=== PATIENT | female | born 1990 | race Caucasian/White ===

== ENCOUNTER 2022-01-02 14:14 | Outpatient (CLI) | payer BC, SELFPAY ==
--- NOTE | ~2022-01-02 | US_ITS ---
EXAMINATION: US OB <=14 wk fetus w TV DATE: 01/02/2022 14:48 INDICATION: Uncertain dates. TECHNIQUE: Real-time transabdominal and transvaginal pelvic ultrasound was performed. COMPARISON: None. FINDINGS: TRANSABDOMINAL ULTRASOUND: The uterus measures 13.2 x 6.8 x 6.9 cm. TRANSVAGINAL ULTRASOUND: There is an intrauterine gestational sac. A yolk sac is identified. The fet al crown rump length measures 3.0 cm, which correlates with an estimated gestational age of 9 weeks a nd 6 day(s) (+/-) 6 day(s). heart motion is identified measuring 173 beats per minute (bpm) by M-mode Doppler. The ovaries are not visualized. There is no free fluid in the pelvis. IMPRESSION: 1. Single living intrauterine gestation with estimated date of delivery of 08/01/2022. Reviewed, dictated and finalized at location A. IMPRESSION: 1. Single living intrauterine gestation with estimated date of delivery of .
== END 2022-01-02 14:15 ==
PROVIDERS: Visit Provider Obstetrics & Gynecology
DX: Z36.87 Encounter for antenatal screening for uncertain dates (principal); Z3A.09 9 weeks gestation of pregnancy
CPT/HCPCS: 76801; 76817

== ENCOUNTER 2022-07-18 20:14 | Inpatient (IN) | payer BC, SELFPAY ==
[2022-07-18] VITALS (26 sets, daily range): BP systolic 120–170; BP diastolic 63–126; PULSE 49–123; RESP 18; TEMP 36.1–36.9; O2SAT 89–100; BMI 24.1
[2022-07-18 21:14] LABS: Basophils Percent Auto 0.4 % (0.2-1.2); Eosinophils Absolute Auto 0.2 K/mm3 (0-0.3); Eosinophils Percent Auto 1.7 % (0-4.4); Hematocrit 37.8 % (37.0-47.0); Hemoglobin 12.5 g/dL (12.0-15.0); Immature Granulocyte Absolute 0.05 K/mm3 (0.00-0.031); Immature Granulocyte Percent A 0.6 % (0-0.5); Immature Platelet Fraction Pct 16.1 % (0.9-11.2); Lymphocytes Percent Auto 15.5 % (18.3-44.2); Mean Corpuscular HGB Conc 33.1 g/dl (32-36); Mean Corpuscular Hemoglobin 30.9 pg (26-34); Mean Corpuscular Volume 93.6 fl (80-100); Mean Platelet Volume 13.1 fl (7.4-10.4); Monocytes Absolute Auto 0.7 K/mm3 (0.1-0.6); Monocytes Percent Auto 7.8 % (2.6-8.5); Neutrophils Absolute Auto 6.7 K/mm3 (1.3-6.7); Platelet Count Result 173 k/mm3 (150-375); Red Blood Count 4.04 M/mm3 (4.2-5.4); Red Cell Distribution Width 13.2 % (11.5-14.5); White Blood Count 9.1 K/mm3 (4.5-10.0)
--- NOTE | 2022-07-18 21:27 | LDADM ---
This patient, Arabella Ga, was admitted to Labor/Delivery/Recovery 106 on 07/18/22 at 20:14. Plans for labor, pain management and were discussed with patient. Patient/family oriented to hospital policies and general routines including ID bracelet, bed and alarms, visiting hours, pain management, procedures, bathroom and other care routines, personal items, smoking policy, room service/diet and guest tray routines, security routines, and visiting hours. Patient/Family are encouraged to report perceived risks to care and to ask questions if they do not understand what they are told or what they should do. See OBIX for further documentation.
[2022-07-18] MEDS: LACTATED RINGERS 1,000 ML 125 ML IV CONT ×2 (22:02→23:38)
--- NOTE | 2022-07-18 22:32 | WPDANESEPP ---
Anes - Eval Pre Procedure Procedure: Labor epidural Date/Time: 07/18/22 22:32 Surgeon: Fercho Preop Diagnosis: Abd pain with contractions Pre Op Diagnosis: SROM Patient Data Age: 32 Gender: F Height: 1.7 m Weight: 70 kg Last Vital Signs Pulse 60 07/18/22 21:01 BP 135/85 07/18/22 21:01 Pulse Ox 100 07/18/22 22:31 O2 Del Method Room Air 07/18/22 21:26 Allergies Allergy/AdvReac Type Severity Reaction Status Date / Time amoxicillin Allergy Intermediate HIVES Verified 07/15/22 09:36 cephalexin Allergy Intermediate HIVES Verified 07/15/22 09:36 Penicillins Allergy Intermediate HIVES Verified 07/15/22 09:36 bacitracin Allergy Mild BLISTERS Verified 07/15/22 09:36 latex Allergy Mild Rash Verified 07/15/22 09:36 neomycin Allergy Mild BLISTERS Verified 07/15/22 09:36 polymyxin B Allergy Mild BLISTERS Verified 07/15/22 09:36 Home Medications Medication Instructions Recorded Confirmed Type vitamins-iron fumarate 65 1 tablet PO DAILY 12/26/21 07/15/22 History mg iron-folic acid 1 mg tablet Laboratory Tests 07/18/22 07/18/22 07/18/22 21:05 21:05 21:05 WBC 9.1 K/mm3 K/mm3 (4.5-10.0) RBC 4.04 M/mm3 L M/mm3 (4.2-5.4) Hgb 12.5 g/dL g/dL (12.0-15.0) Hct 37.8 % % (37.0-47.0) MCV 93.6 fl fl (80-100) MCH 30.9 pg pg (26-34) MCHC 33.1 g/dl g/dl (32-36) RDW 13.2 % % (11.5-14.5) Plt Count 173 k/mm3 k/mm3 (150-375) MPV 13.1 fl H fl (7.4-10.4) Immature Gran % (Auto) 0.6 % H % (0-0.5) Neut % (Auto) 74.0 % H % (45.5-73.1) Lymph % (Auto) 15.5 % L % (18.3-44.2) [place] % (Auto) 7.8 % % (2.6-8.5) Eos % (Auto) 1.7 % % (0-4.4) Baso % (Auto) 0.4 % % (0.2-1.2) Lymph # (Auto) 1.40 K/mm3 K/mm3 (0.9-3.2) [place] # (Auto) 0.7 K/mm3 H K/mm3 (0.1-0.6) Eos # (Auto) 0.2 K/mm3 K/mm3 (0-0.3) Baso # (Auto) 0.0 K/mm3 K/mm3 (0.0-0.1) Abs Immat Gran (auto) 0.05 K/mm3 H K/mm3 (0.00-0.031) Absolute Neuts (auto) 6.7 K/mm3 K/mm3 (1.3-6.7) Absolute Nucleated RBC 0.0 K/mm3 K/mm3 (0.0-0.012) Nucleated RBC % 0.0 % % (0.0-0.2) % Immature Plt Fraction 16.1 % H % (0.9-11.2) RPR Pending Blood Type A Positive Antibody Screen Negative Patient hx anesthesia problems: none Family hx anesthesia problems: none Results Review: All pre-operative results and documents have been reviewed as part of the pre-operative evaluation. [facility] Past Medical History Medical History Anxiety Crohn disease Cystic acne and not yet delivered Suppression of menstruation Surgical History Surgical History H/O colonoscopy (07/18/19) inflammation Social History Social History Smoking status: Former smoker Second hand tobacco smoke exposure: No Alcohol intake: never Substance use: former Substance use type: marijuana Other substance usage details: Past hx marijuana Last use: 11/05/2021 Additional living arrangements comments: spouse Additional occupation/education comments: stay at home mom Gender identity (if verbalized by the patient): Female Sexual Orientation (if Verbalized by the Patient): Straight or Heterosexual Spiritual care concerns: No Exam Day of Procedure 07/18/22 22:32 Patient weight: normal Airway: Mallampati scale class II
[2022-07-18] MEDS: OXYTOCIN 30 UNITS/NS 500 ML 30 UNITS/500 ML BAG 999 UNITS IV CONT (23:38)
--- NOTE | 2022-07-18 23:43 | WPDOBADMIT ---
Obstetrics - Admit Note Admission Note: record reviewed. No pertinent additions to the history and/or any subsequent changes in the physical findings that are not consistent with the expected course of the were found. Additions to the history and/or subsequent changes in the physical findings follow. None. @ 37.6wks admitted with SROM, spontaneous labor. Uncomplicated ; routine care.
--- NOTE | 2022-07-18 23:44 | WPDHPUPDATE1 ---
History and Physical Update Update Date/Time: 07/18/22 23:44 History and Physical has been reviewed, including an updated exam of the patient. There are NO changes in the patient's condition. Risks, benefits, and alternatives have been discussed and questions answered. Patient agrees to proceed with procedure.
--- NOTE | 2022-07-18 23:45 | PM.OBPRVD ---
OB - Delivery Note Procedure Delivery date: 07/18/22 Delivery monitor: External FHT and External Uterine Route of delivery: Laceration Description: Perineal - 1st Degree Delivery repair: vicryl Specimen: No Quantitative Blood Loss (ml): 150 Anesthesia type: Epidural Disposition: Floor [place] Baby Date of : 07/18/22 Time of : 23:31 Weeks of gestation at delivery: 37 (.6) Infant gender: Female Weight (pounds): 5 Weight (ounces): 13 presentation: vertex position: Right Occiput Anterior Placenta delivery description: Expressed Cord Vessel Description: 3 Vessels and Delayed Cord Clamping score one minute: 9 score five minutes: 9 Narrative: Arabella rapidly progressed to complete dilation with strong desire to push. She delivered the head over intact perineum. She easily delivered the 's shoulders and body without complication. The was immediately placed skin to skin and had spontaneous cry. Delayed cord clamping was performed. The umbilical cord was then clamped and cut. A segment of the cord was collected for cord gases. The remaining cord blood was collected for typing. With Pitocin running and gentle downward traction on the cord, the placenta delivered without complications. The patient was examined and a small first-degree perineal laceration was noted. The laceration was repaired using a 2-0 Vicryl in a figure of 8 pattern and the laceration was found be hemostatic. Sponge, lap, instrument, and needle counts were correct at the end the procedure. Mom and baby were left bonding in the birthing suite in stable condition. [facility] Delivery Billing Delivery Delivery: Delivery Charge
[2022-07-19] VITALS (15 sets, daily range): BP systolic 100–135; BP diastolic 49–84; PULSE 51–85; RESP 14–18; TEMP 36.6–36.9; O2SAT 96–99
[2022-07-19] MEDS: IBUPROFEN 600 MG TABLET PO ×3 (00:48→19:02)
[2022-07-19] MEDS: WITCH HAZEL 40 PADS 1 PAD TOPICAL (00:49)
[2022-07-19] MEDS: BENZOCAINE 20% AER SPR (*SP) 56 GM CAN 1 SPRAY TOPICAL (00:49)
--- NOTE | 2022-07-19 01:53 | PC.NURSE ---
Report given to Nahomi Farias
[2022-07-19 06:26] LABS: Hematocrit 31.2 % (37.0-47.0); Hemoglobin 10.4 g/dL (12.0-15.0)
--- NOTE | 2022-07-19 07:00 | PC.NURSE ---
PT introductions made and plan of care discussed per post , pain management, breast feeding, daily care activities. PT and spouse both recipients of such instructions and no barriers to learning identified at this time. PT received such instructions per one to one discussion, mom baby care guide and demonstrations this shift. PT verbalized understanding of such care.
--- NOTE | 2022-07-19 09:08 | P.PNOB_ITS ---
OB - PN: Subj Subjective Date/time seen: 07/19/22 09:08 Narrative: PPD#1 Arabella reports doing well today. 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 Her pain is controlled. She is tolerating regular diet, voiding, passing gas, and ambulating without issues. She is breast feeding. She would like to go home tomorrow AM. OB - PN: Obj Data Labs CBC & Chem 7: 07/19/22 05:27 Labs: Laboratory Results - last 24 hr 07/18/22 07/18/22 07/19/22 21:05 21:05 05:27 WBC 9.1 RBC 4.04 L Hgb 12.5 10.4 L Hct 37.8 31.2 L MCV 93.6 MCH 30.9 MCHC 33.1 RDW 13.2 Plt Count 173 MPV 13.1 H Immature Gran % (Auto) 0.6 H Neut % (Auto) 74.0 H Lymph % (Auto) 15.5 L [place] % (Auto) 7.8 Eos % (Auto) 1.7 Baso % (Auto) 0.4 Lymph # (Auto) 1.40 [place] # (Auto) 0.7 H Eos # (Auto) 0.2 Baso # (Auto) 0.0 Abs Immat Gran (auto) 0.05 H Absolute Neuts (auto) 6.7 Absolute Nucleated RBC 0.0 Nucleated RBC % 0.0 % Immature Plt Fraction 16.1 H Blood Type A Positive Antibody Screen Negative OB - PN A/P Assessment and Plan (1) Normal vaginal delivery of second : Code(s): O80 - Encounter for full-term uncomplicated delivery Status: Acute Plan day: 1 Plan: routine care and discharge home (tomorrow AM) Comments: - Pelvic rest; take meds as prescribed - ER return precautions: fever, n/v/abd pain, bleeding, HTN Time Spent With Patient Time: Total time spent is greater than 50% in coordination of care (as documented) at patient's floor/unit and/or counseling patient: Review of Systems Constitutional: Constitutional: Denies chills, Denies fever(s) and Denies headache(s) Eyes: Eyes: Denies change in vision ENT: Denies dizziness and Denies headache(s) Cardiovascular: Cardiovascular: Denies chest pain, Denies palpitations and Denies dyspnea Respiratory: Respiratory: Denies cough and Denies dyspnea Gastrointestinal: Gastrointestinal: Denies nausea and Denies vomiting Neurologic: Denies dizziness and Denies headache(s) Endocrine: Endocrine: Denies palpitations Exam Const: General: cooperative, healthy appearing, comfortable and no acute distress Orientation/consciousness: patient oriented x3 Resp: Effort & Inspection: normal respiratory effort Auscultation: clear to auscultation bilaterally Cardio: Rate: regular rate GI: Inspection: non-distended GI Palp: No abdominal tenderness and Yes Soft to palpation Auscultation: normal bowel sounds : Other: fundus firm Skin: General skin exam: normal color Neuro: General: patient oriented x3 Extrem: General: normal to inspection Psych: Appearance: grossly normal Affect: normal affect Attitude: cooperative
[2022-07-19] MEDS: ACETAMINOPHEN 325 MG TABLET 650 MG PO ×2 (11:16→19:02)
[2022-07-19] MEDS: MULTIVIT/MIN/PREN/FOL AC/IRON TABLET 1 TAB PO (11:18)
--- NOTE | 2022-07-19 13:02 | WPDANLDPN2 ---
Anes-Prog Note L&D Date/Time: 07/19/22 13:02 Comfortable throughout: labor and delivery Neuraxial method: epidural Epidural/Spinal procedure site: clean & non-tender Neuro status: Neuro function grossly intact. Cardiovascular status: normal Respiratory status: normal Airway patency: baseline Mental status: baseline Post-Op hydration status: normal Vital Signs: Last Vital Signs Temp 36.8 C 07/19/22 11:47 Pulse 60 07/19/22 11:47 Resp 14 07/19/22 11:47 BP 111/68 07/19/22 11:47 Pulse Ox 97 07/19/22 11:47 O2 Del Method Room Air 07/19/22 02:15 Pain score (VAS): 10/14 I/O: Intake & Output 07/18/22 07/19/22 07/19/22 23:59 07:59 15:59 Intake Total 1000 Output Total 240 Balance 1000 -240 Post-procedural complaints: none Patient feedback: Patient satisfied with anesthetic care.
--- NOTE | 2022-07-20 07:15 | PC.NURSE ---
PT introductions made and plan of care discussed per post , pain management, breast feeding, daily care activities and pending discharge to home. PT and spouse both recipients of such instructions and no barriers to learning identified at this time. PT received such instructions per one to one discussion, mom baby care guide and demonstrations this shift. PT verbalized understanding of such care.
[2022-07-20 09:00] VITALS: BP 113/70; PULSE 84; RESP 16; TEMP 36.6
[2022-07-20] MEDS: ACETAMINOPHEN 325 MG TABLET 650 MG PO (09:02)
[2022-07-20] MEDS: DOCUSATE SODIUM 100 MG CAPSULE PO (09:02)
[2022-07-20] MEDS: MULTIVIT/MIN/PREN/FOL AC/IRON TABLET 1 TAB PO (09:02)
--- NOTE | 2022-07-20 09:30 | PC.NURSE ---
PT received discharge instructions per protocol and verbalized understanding of such care.
--- NOTE | 2022-07-20 09:58 | PC.NURSE ---
PT discharged to home ambulatory accompanied by fob and infant and taken to waiting car. follow up appts confirmed
[2022-07-21 06:27] LABS: Rapid Plasma Reagin Non-Reactive (NonReactive)
[2022-07-22 07:48] VITALS: BP 124/77; PULSE 77; RESP 16; TEMP 37.1; O2SAT 98
--- NOTE | 2022-07-22 13:42 | PM.OBDSVD ---
DS: Admitting Diagnosis Discharge Date 07/20/22 Admitting Diagnosis Active labor DS: Discharge Diagnosis Discharge Diagnosis (1) Normal vaginal delivery of second : Code(s): O80 - Encounter for full-term uncomplicated delivery Status: Acute OB - DS: Summary OB Procedures : Ultrasound OB Procedures Intrapartum: Spontaneous Vag Delivery OB Procedures: : None Peripartum Data Infant Delivery Method: Natural Vaginal Laceration Description: Perineal - 1st Degree complications: none 1: Gender: Female Disposition of : home Status at Discharge Functional status at discharge: independent ambulation Overall status at discharge: patient is back to baseline Time Spent with Patient Time attestation: Total time spent providing and/or coordinating discharge services: Time spent: Less than 30 minutes Exam Const: General: cooperative, healthy appearing, comfortable and no acute distress Orientation/consciousness: patient oriented x3 Resp: Effort & Inspection: normal respiratory effort Auscultation: clear to auscultation bilaterally Cardio: Rate: regular rate GI: Inspection: non-distended GI Palp: No abdominal tenderness and Yes Soft to palpation Auscultation: normal bowel sounds : Other: fundus firm Skin: General skin exam: normal color Neuro: General: patient oriented x3 Extrem: General: normal to inspection Psych: Appearance: grossly normal Affect: normal affect Attitude: cooperative Discharge Plan Discharge Attending physician on discharge: Marjorie Mason Discharging Clinician: Marjorie Mason Anticipated Discharge Date/Time: 07/20/22 09:00 Patient Disposition: Home, Self-Care Activity: may shower and pelvic rest Diet: regular Discharge Instructions: Education: Mom and Baby Guide Given to: Mother Follow-Up: Call your delivering provider's office for an appointment to be seen in: 4 Weeks Mom and baby should come to the [facility] for the follow-up appointment. Appointment Date/Time: July 22, 2022 at 8:00 am What to expect at your follow-up visit: Blood Pressure Check Call [phone] if you are unable to keep your appointment time. BREAST CARE: * Wear a snug supportive bra. * For engorgement discomfort: Breast Feeding: * Apply warm moist washcloths * Express milk as needed to relieve engorgement * Wear loose clothing Bottle Feeding: * May apply ice packs * For sore nipples: * Identify correct latch-on * Apply warm moist washcloths before and after nursing * Air dry nipples after nursing * May apply Lansinoh cream to nipples PERINEAL CARE: * Until bleeding stops, use your jagruti bottle after urinating * Change your pad frequently throughout the day * You may take sitz baths several times a day (fill your bathtub with warm water and soak for 20 minutes.) Do NOT bathe in the water * No tub baths until seen by your physician - You may shower ACTIVITY: * Rest as much as possible. * Do not exercise or lift anything heavier than your baby (such as laundry or other children.) * Avoid stairs or driving as much as possible. * Do not put anything into the vagina. No douching, tampons, or sexual activity until seen by physician. NOTIFY PHYSICIAN IF YOU HAVE ANY QUESTIONS OR IF ANY OF THE FOLLOWING SYMPTOMS OCCUR: * If your perineum becomes red, swollen, or more painful than what you have experienced in the hospital. * If your vaginal bleeding becomes foul smelling. * If your vaginal bleeding becomes more heavy than a period or if your bleeding changes from pink to bright red. However, you may pass an occasional walnut-sized clot once or twice for the first week . * If you experience a sharp, shooting pain in you calves. * If you discover a hard, reddened area on your breast or if
== END 2022-07-20 09:58 | disposition home or self-care (01) | DRG 807 ==
LOC: ANHLDR 21:18 → ANHOB2 07-19 09:12 → ANHLDR 07-23 07:04 → ANHOB2 07-23 07:04
PROVIDERS: Advanced Practice Midwife; Admitting Provider Obstetrics & Gynecology; Visit Provider Obstetrics & Gynecology
DX: O76 Abnormality in fetal heart rate and rhythm complicating labor and delivery (principal); Z37.0 Single live birth; O70.0 First degree perineal laceration during delivery; Z3A.37 37 weeks gestation of pregnancy
CPT/HCPCS: 36415; 84112; 85014; 85018; 85025; 85055; 86592; 86850; 86900; 86901; A9270; J2590; J2795; J7120